=== PATIENT | female | born 1965 | race Two or more races ===

== ENCOUNTER → 2024-07-22 | Outpatient (CLI) | payer MEDICAID, SELFPAY ==
--- NOTE | 2024-07-22 | XR_ITS ---
Examination: Screening digital mammography, bilateral Computer aided detection 3-D breast Tomosynthesis, bilateral Date and time of exam: July 22, 2024 at 1300 hours Compared to mammograms dating to July 09, 2019 Indication: Screening Technique: Nonmagnified MLO, CC views of the breasts to been obtained, reconstructed from 3-D Tomosynthesis images. R2 computer aided detection program utilized for evaluation of suspicious masses and/or abnormal calcifications. 3-D Tomosynthesis images obtained. Findings: Scattered areas of fibroglandular density Again noted 16mm nodule 12:00 position right breast and 13 mm nodule 2:00 position left breast Benign calcifications Impression: BI-RADS Category 0: Incomplete: Need additional imaging evaluation Recommend repeat bilateral breast sonography to compare with the th 11/11/2023 exam to document stability of right breast nodule retroareolar and left breast nodule 2:00 position left breast
== END | disposition home or self-care (01) ==
LOC: CDIM 12:41
PROVIDERS: Referring Provider Nurse Practitioner Family; Visit Provider Nurse Practitioner Family
DX: Z12.31 Encounter for screening mammogram for malignant neoplasm of breast (principal); N63.41 Unspecified lump in right breast, subareolar; N63.21 Unspecified lump in the left breast, upper outer quadrant
CPT/HCPCS: 77063; 77067

== ENCOUNTER → 2025-06-01 | Outpatient (CLI) | payer MEDICAID, SELFPAY ==
--- NOTE | 2025-06-01 16:30 | XR_ITS ---
Examination: MRI lumbar spine without contrast Date and time of exam: June 01, 2025, 1719 hours INDICATIONS: Low back pain 5 weeks radiating to the left side down the left leg with numbness in the extremities Technique: Multiple MRI axial and sagittal sections lumbar spine. Sagittal T2-weighted images, TR 3500, TE 118 T1 weighted transverse sections, TR 688 T8.5, T2-weighted sagittal sections T1 weighted sagittal sections TR 621, TE 30 T2 axial sections, TR 4, 190, TE 84. Findings: Satisfactory alignment lumbar vertebral bodies Mild disc narrowing posteriorly L5-S1 Normal marrow signal lumbar vertebral bodies No lumbar fracture Normal position conus medullaris and cauda equina Axial images demonstrate no focal lumbar disc protrusion IMPRESSION: Satisfactory alignment lumbar vertebral bodies No lumbar fracture No focal lumbar disc protrusion or significant acquired spinal stenosis
== END | disposition home or self-care (01) ==
LOC: SMRI 16:17
PROVIDERS: PCP Nurse Practitioner Family; Referring Provider Nurse Practitioner Family; Visit Provider Nurse Practitioner Family
DX: M54.16 Radiculopathy, lumbar region (principal)
CPT/HCPCS: 72148